=== PATIENT | male | born 1960 | race Caucasian/White ===

== ENCOUNTER 2019-03-10 06:15 | Emergency (ER) | payer MEDICAID ==
[~2019-03-10] VITALS: Ht 185.4 cm; Wt 83.1 kg
[2019-03-10] MEDS ORDERED: ALBUTEROL/IPRATROPIUM 2.5MG/0.5MG, 3 ML ONE ×2 (06:55)
[2019-03-10] MEDS ORDERED: ALBUTEROL/IPRATROPIUM 2.5MG/0.5MG, 3 ML NPPB SCH (07:00)
--- NOTE | 2019-03-10 07:05 | NUR ---
RT AT BEDSIDE
--- NOTE | 2019-03-10 07:11 | NUR ---
MEDICATED PER EMAR
--- NOTE | 2019-03-10 07:27 | NUR ---
WITH REASSESSMENT- BREATH SOUNDS AUDIBLE TO BASES (SLIGHTLY COARSE AND MILD WHEEZES) PATIENT REPORTS "MY BREATHING IS MUCH BETTER. HOPEFULLY MY FOOT IS OKAY."
[2019-03-10 07:33] VITALS: BP 111/62
--- NOTE | 2019-03-10 08:21 | NUR ---
POC UPDATED WITH PROVIDER- (AWAITING RIGHT FOOT DME PRODUCT). ESTIMATED DELIVERY AT ABOUT 10:00AM PATIENT UPDATED BREAKFAST ORDERED
--- NOTE | 2019-03-10 08:58 | NUR ---
PROVIDED WITH BREAKFAST UPDATED ON ESTIMATED POC
--- NOTE | 2019-03-10 09:56 | NUR ---
WALKING BOOT DELIVED TO BEDSIDE- CMS INTACT
== END 2019-03-10 10:23 | disposition home or self-care (01) ==
LOC: ED 06:44
DX: S92.354A Nondisplaced fracture of fifth metatarsal bone, right foot, initial encounter for closed fracture (principal); J06.9 Acute upper respiratory infection, unspecified; F17.210 Nicotine dependence, cigarettes, uncomplicated; X58.XXXA Exposure to other specified factors, initial encounter; Y93.89 Activity, other specified; Y92.89 Other specified places as the place of occurrence of the external cause; Y99.8 Other external cause status
CPT/HCPCS: 71046; 73630; 93005; 94640; 99284; J7512; 99283

== ENCOUNTER 2019-07-22 08:15 | Emergency (ER) | payer MEDICAID ==
[~2019-07-22] VITALS: Ht 182.9 cm; Wt 85.0 kg
[2019-07-22 08:17] VITALS: BP 129/72
== END 2019-07-22 09:02 | disposition home or self-care (01) ==
LOC: ED 08:50
DX: L03.115 Cellulitis of right lower limb (principal); J44.9 Chronic obstructive pulmonary disease, unspecified; Z88.1 Allergy status to other antibiotic agents
CPT/HCPCS: 99283